=== PATIENT | female | born 1945 | race Caucasian/White ===

== ENCOUNTER 2023-06-20 05:39 | Observation (INO) ==
[~2023-06-20 05:39] MED LIST: Naloxone 0.4 mg VIAL 0.4 mg/ml 1 ml VIAL IV PRN; Ondansetron 4 mg VIAL 2 MG/ML 2 ml VIAL IV PRN; fentaNYL 100 mcg/2 ml 50 MCG/ML VIAL IV PRN
[2023-06-20] MEDS ORDERED: Heparin 5000 UNITS/ML 1 mL VIAL ONE (06:06)
[2023-06-20] MEDS ORDERED: ceFAZolin 2 GM PREMIX 2 GM/50 ML BAG ONE ×2 (06:06→07:59)
[2023-06-20 06:35] LABS: Rapid COVID-19 Molecular Undetected (Undetected)
[2023-06-20] MEDS ORDERED: Rocuronium 50 mg VIAL 10 mg/ml 5 ml VIAL (50 mg) ONE ×3 (07:13→11:23)
[2023-06-20] MEDS ORDERED: fentaNYL 250 mcg/5 ml 50 MCG/ML 5 ml VIAL (250 MCG) ONE (07:13)
[2023-06-20] MEDS ORDERED: Midazolam 2 mg/2 ml VIAL 1 mg/ml 2 ml VIAL (2 mg) ONE (07:13)
[2023-06-20] MEDS ORDERED: ISOSULFAN BLUE 1% 5 ML VIAL 10 MG/ML SUBCUT ONE ×2 (07:22→07:24)
[2023-06-20] MEDS ORDERED: Bupivacaine 0.5% SDV PF 30ML VIAL ONE (07:22)
[2023-06-20] MEDS ORDERED: Sevoflurane BOTTLE ONE (11:35)
[2023-06-20] MEDS ORDERED: Dexamethasone IV 4 MG/ML VIAL 1 ml VIAL ONE (11:35)
[2023-06-20] MEDS ORDERED: Lidocaine 2% PF 5 ML VIAL ONE (11:35)
[2023-06-20] MEDS ORDERED: Succinylcholine 200 mg VIAL 20 mg/ml 10 ml VIAL (200 mg) ONE (11:35)
[2023-06-20] MEDS ORDERED: Ondansetron 4 mg VIAL 2 MG/ML 2 ml VIAL ONE (11:35)
[2023-06-20] MEDS ORDERED: Morphine 2 MG/ML SYRINGE IV PRN (13:41)
[2023-06-20] MEDS ORDERED: Dextran 70/Hypromellose Tears Eye Drops 15 ml BTL (for Artificials Tears) BOTH EYES PRN (15:56)
[2023-06-20] MEDS: Buffered Lidocaine 1% SYRIN 1 ml INTRADERM ONE (16:06)
[2023-06-20] MEDS: Lactated Ringers 1000 ml BAG 1,000 ML IV SCH (16:23)
[2023-06-20] MEDS: Heparin 5000 UNITS/ML 1 mL VIAL SUBCUT SCH (17:41)
[2023-06-20] MEDS: ceFAZolin 2 GM PREMIX 2 GM/50 ML BAG IV SCH (20:57)
[2023-06-20] MEDS: HYDROcodone/ACETAMIN 5/325 mg TAB PO PRN (21:01)
[2023-06-21] MEDS: Benzocaine/Menthol LOZ PO PRN (00:14)
[2023-06-21 10:28] VITALS: BP 132/68
== END 2023-06-21 11:12 | disposition home or self-care (01) ==
LOC: INTOOBSV 05:39 → AA 05:39 → SSU 15:45
PROVIDERS: ADMIT Student in an Organized Health Care Education/Training Program; ATTEND Student in an Organized Health Care Education/Training Program

== ENCOUNTER 2024-04-07 14:55 | Observation (INO) ==
[2024-04-07] MEDS: Lactated Ringers 1000 ml BAG 1,000 ML IV ONE (16:50)
[2024-04-07 17:12] LABS: ABS Basophils 0.1 10^3/uL (0.0-0.1); ABS Eosinophils 0.1 10^3/uL (0.0-0.5); ABS Lymphocytes 0.8 10^3/uL (1.0-4.8); ABS Monocytes 0.5 10^3/uL (0.0-0.9); ABS Neutrophils 4.5 10^3/uL (1.5-7.6); ABS Nucleated RBC 0.01 10^3/ul; Eosinophil % 1.7 %; Hematocrit 36.9 % (35-45); Hemoglobin 12.4 g/dL (11.5-14.3); Mean Corpuscular Hgb Conc 33.8 g/dL (31-36); Mean Corpuscular Volume 94.8 fL (80-97); Nucleated Red Blood Cells % 0.2 %/100WBC (0.0-0.8); Platelet Count 282 10^3/uL (150-450); Red Blood Count 3.89 10^6/uL (3.63-4.92); Red Cell Distribution Width 16.2 % (12-17)
[2024-04-07 17:29] LABS: Urine Appearance Clear; Urine Bilirubin Negative (Negative); Urine Blood Negative (Negative); Urine Color Colorless; Urine Glucose Negative (Negative); Urine Ketones Negative (Negative); Urine Nitrite Negative (Negative); Urine Protein Negative (Negative); Urine Specific Gravity 1.009 (1.002-1.030); Urine Urobilinogen Negative (Negative); Urine pH 5.5 (5.0-8.0)
[2024-04-07 17:32] LABS: Albumin 4.1 g/dL (3.5-5.7); Albumin/Globulin Ratio 1.6 (1-3); C Reactive Protein 3.19 mg/L (<8.01); Creatinine, Serum 0.6 mg/dL (0.51-0.95); Globulin 2.5 g/dL (2-4); Potassium 4.2 mmol/L (3.5-5.0); Total Bilirubin 0.5 mg/dL (0.2-1.0); Total Protein 6.6 g/dL (6.4-8.9); eGFR CKD-EPI 91.8 (>60)
[2024-04-07] MEDS: Iohexol 350 (CONTRAST) 500 ML MDV IV ONE (18:52)
[2024-04-08] MEDS ORDERED: HYDROmorphone 0.5 MG/0.5 ML SYRINGE IV SLOW PU PRN (01:39)
[2024-04-08] MEDS ORDERED: Bupivacaine 0.25% EPI 200,000 30 ML SDV ONE (16:46)
[2024-04-08] MEDS ORDERED: ceFAZolin 2 GM PREMIX 2 GM/50 ML BAG ONE (16:46)
[2024-04-08] MEDS ORDERED: Lidocaine 2% PF 5 ML VIAL ONE (16:53)
[2024-04-08] MEDS ORDERED: fentaNYL 100 mcg/2 ml 50 MCG/ML VIAL ONE ×2 (16:53→18:02)
[2024-04-08] MEDS ORDERED: Propofol 10 MG/ML 20 ML BTL ONE (16:53)
[2024-04-08] MEDS ORDERED: Rocuronium 50 mg VIAL 10 mg/ml 5 ml VIAL (50 mg) ONE (16:53)
[2024-04-08] MEDS ORDERED: Midazolam 2 mg/2 ml VIAL 1 mg/ml 2 ml VIAL (2 mg) ONE (16:53)
[2024-04-08] MEDS ORDERED: Ondansetron 4 mg VIAL 2 MG/ML 2 ml VIAL ONE ×2 (17:41→19:27)
[2024-04-08] MEDS ORDERED: Dexamethasone IV 4 MG/ML VIAL 1 ml VIAL ONE (17:41)
[2024-04-08] MEDS ORDERED: Acetaminophen IV 1 GM/100ML 1,000 MG/100 ML BAG IV ONE (17:42)
[2024-04-08] MEDS ORDERED: Glycopyrrolate IV 0.2 MG/ML 1 ML VIAL ONE (17:43)
[2024-04-08] MEDS: Acetaminophen IV 1 GM/100ML 1,000 MG/100 ML BAG IV SCH (21:51)
[2024-04-09 06:31] LABS: INR 1.01 (0.85-1.14)
[2024-04-09 06:45] LABS: Albumin 3.4 g/dL (3.5-5.7); Albumin/Globulin Ratio 1.5 (1-3); Calcium 8.3 mg/dL (8.6-10.3); Creatinine, Serum 0.53 mg/dL (0.51-0.95); Direct Bilirubin 0.1 mg/dL (0.03-0.18); Globulin 2.3 g/dL (2-4); Indirect Bilirubin 0.5 mg/dL (0.3-1.0); Potassium 4.1 mmol/L (3.5-5.0); Total Bilirubin 0.6 mg/dL (0.2-1.0); Total Protein 5.7 g/dL (6.4-8.9); eGFR CKD-EPI 94.6 (>60)
[2024-04-09 07:52] LABS: ABS Lymphocytes 0.5 10^3/uL (1.0-4.8); ABS Monocytes 0.7 10^3/uL (0.0-0.9); ABS Neutrophils 6.8 10^3/uL (1.5-7.6); Eosinophil % 0.1 %; Hematocrit 35.9 % (35-45); Hemoglobin 12.2 g/dL (11.5-14.3); Lymphocyte % 6.3 %; Mean Corpuscular Hemoglobin 32.5 pg (27-33); Mean Corpuscular Hgb Conc 34.1 g/dL (31-36); Mean Corpuscular Volume 95.5 fL (80-97); Mean Platelet Volume 8.3 fL (7.5-11.2); Platelet Count 264 10^3/uL (150-450); Red Blood Count 3.76 10^6/uL (3.63-4.92); Red Cell Distribution Width 15.8 % (12-17)
[2024-04-09 10:52] VITALS: BP 123/80
== END 2024-04-09 11:45 | disposition home or self-care (01) ==
LOC: ED 14:55 → SUATTDRO 23:46 → INTOOBSV 23:46 → EDHOLD 23:46 → MED 04-08 00:30
PROVIDERS: ADMIT Internal Medicine; ATTEND Internal Medicine